=== PATIENT | male | born 1960 | race Caucasian/White ===

== ENCOUNTER 2020-04-01 22:19 | Emergency (ER) | payer OTHER ==
[~2020-04-01] VITALS: Ht 175.3 cm; Wt 80.3 kg
[~2020-04-01 22:19] MED LIST: CLONIDINE HCL0.1 MG PO; CYMBALTA30 MG PO; DIAZEPAM5 MG PO; DOLOPHINE HCL10 MG PO; GABAPENTIN300 MG PO; GUAIATUSSIN AC10 ML PO; KLONOPIN1 MG PO; MELOXICAM15 MG PO; OXYCODONE HCL5 MG PO; PROVENTIL HFA6.7 GM INH; ZITHROMAX500 MG PO
[2020-04-01] MEDS ORDERED: BUPRENORPHIN-N1 EACH SL (22:27)
== END 2020-04-01 23:20 | disposition home or self-care (01) ==
LOC: ED 22:19
DX: F11.23 Opioid dependence with withdrawal (principal); Z88.8 Allergy status to other drugs, medicaments and biological substances; Z79.899 Other long term (current) drug therapy
CPT/HCPCS: 99284

== ENCOUNTER 2023-07-08 05:57 | Emergency (ER) | payer OTHER ==
[~2023-07-08] VITALS: Ht 175.3 cm; Wt 63.4 kg
[~2023-07-08 05:57] MED LIST changes: +BUPRENORPHIN-N1 EACH SL
[2023-07-08] MEDS ORDERED: ALBUTEROL/IPRATROPIUM 3 ML NEB INH ONE (06:30)
[2023-07-08 06:54] LABS: INFLUENZA B NAA NEGATIVE (NEGATIVE); RESPIRATORY SYNCYTIAL VIR NAA NEGATIVE (NEGATIVE)
[2023-07-08] MEDS ORDERED: ACETAMINOPHEN 500 MG TAB PO ONE (07:00)
[2023-07-08] MEDS ORDERED: VENTOLIN HFA18 GM INH (07:01)
[2023-07-08 07:11] VITALS: BP 136/77
== END 2023-07-08 07:12 | disposition home or self-care (01) ==
LOC: ED 05:57
PROVIDERS: Internal Medicine
DX: J06.9 Acute upper respiratory infection, unspecified (principal); B97.89 Other viral agents as the cause of diseases classified elsewhere; Z86.16 Personal history of COVID-19; Z88.7 Allergy status to serum and vaccine; Z91.048 Other nonmedicinal substance allergy status
CPT/HCPCS: 71045; 87502; 94640; A9270; U0002

== ENCOUNTER 2024-02-12 12:52 | Observation (INO) | payer OTHER ==
[~2024-02-12] VITALS: Ht 175.3 cm; Wt 63.6 kg
[~2024-02-12 12:52] MED LIST changes: +ALEVE ARTHRITI100 GM TP; +GABAPENTIN300 MG; +IBLOOD GLUCOSE TEST STRIP 1 EA TEST VI PRN; +LACTATED RINGER'S 1,000 ML IV SCH; +LIDOCAINE HCL 1% 5 ML SDV INJ ONE; +MIDAZOLAM HCL 5 MG/5 ML VIAL IV PRN; +TURMERIC CURCU500 MG PO; +VENTOLIN HFA18 GM INH; +[UNRECOGNIZED DRUG - OTHER]; +fentaNYL citrate 100 MCG/2 ML VIAL IV PRN
[2024-02-12 13:06] VITALS: BP 125/68
[2024-02-12] MEDS ORDERED: [UNRECOGNIZED DRUG - OTHER] PO (13:08)
[2024-02-12] MEDS ORDERED: GUMMI BEAR MUL1 EACH PO (13:09)
[2024-02-12] MEDS ORDERED: MIDAZOLAM HCL 5 MG/5 ML VIAL ONE (13:42)
[2024-02-12] MEDS ORDERED: fentaNYL citrate 100 MCG/2 ML VIAL ONE ×2 (13:42→14:20)
[2024-02-12] MEDS ORDERED: SUGAMMADEX SODIUM 200 MG/2 ML ML ONE (14:20)
[2024-02-12] MEDS ORDERED: DEXAMETHASONE SOD PHOS 4 MG/ML VIAL ONE (14:20)
[2024-02-12] MEDS ORDERED: propofoL 200 MG/20 ML VIAL ONE (14:20)
[2024-02-12] MEDS ORDERED: ondansetron HCL 4 MG/2 ML VIAL ONE (14:20)
[2024-02-12] MEDS ORDERED: ROCURONIUM BROMIDE 50 MG/5 ML SYR ONE (14:20)
[2024-02-12] MEDS ORDERED: KETOROLAC TROMETHAMINE 30 MG/ML VIAL ONE (14:20)
[2024-02-12] MEDS ORDERED: LIDOCAINE HCL 4% 5 ML AMP ONE (14:20)
[2024-02-12] MEDS ORDERED: METOCLOPRAMIDE HCL 10 MG/2 ML SDV ONE (14:20)
[2024-02-12] MEDS ORDERED: FAMOTIDINE 20 MG/ 2 ML VIAL ONE (14:20)
[2024-02-12] MEDS ORDERED: MIDAZOLAM HCL 2 MG/2 ML VIAL ONE (14:20)
[2024-02-12] MEDS ORDERED: LACTATED RINGER'S 1,000 ML IV ONE (14:20)
[2024-02-12] MEDS ORDERED: SUCCINYLCHOLINE IN 0.9% NACL 200 MG/10 ML SYRINGE ONE (14:20)
[2024-02-12] MEDS ORDERED: MEROPENEM 1,000 MG in SODIUM CHLORIDE 0.9% 100 ML IV ONE (14:30)
--- NOTE | 2024-02-12 14:44 | NUR ---
02/12/24 Georgette4 Ana Cody 1424 PT BROUGHT INTO PACU FOR TEMP HOLD, BOWEL PERFORATION ACCURED DURING COLONOSCOPY. CHEST XRAY COMPLETED IN PACU CONFIRMED. PT TAKEN TO SURGERY.
--- NOTE | 2024-02-12 15:21 | NUR ---
02/12/24 Wong1 Ana Cody 1424 PT BROUGHT INTO PACU FROM [facility] FOR TEMP HOLDING. BOWEL PERFORATION ACCURED DURING COLONOSCOPY, CHEST XRAY DONE IN PACU TO CONFIRMED. PT TAKEN TO SURGERY
[2024-02-12] MEDS ORDERED: MORPHINE SULFATE 10 MG/ML VIAL IV PRN (16:15)
[2024-02-12] MEDS ORDERED: ACETAMINOPHEN 1,000 MG/100 ML VIAL IV PRN (16:15)
[2024-02-12] MEDS ORDERED: LACTATED RINGER'S 1,000 ML IV SCH (16:15)
[2024-02-12] MEDS ORDERED: ondansetron HCL 4 MG/2 ML VIAL IV PRN (16:15)
[2024-02-12] MEDS ORDERED: OXYCODONE HCL 5 MG TAB PO PRN (16:15)
[2024-02-12] MEDS ORDERED: KETOROLAC TROMETHAMINE 30 MG/ML VIAL IV PRN (16:15)
[2024-02-12] MEDS ORDERED: NALOXONE HCL 0.4 MG/ML VIAL ONE (16:26)
[2024-02-12 16:56] VITALS: BP 140/76
--- NOTE | 2024-02-12 16:58 | NUR ---
PT TO FLOOR WITH NORA CABAN. PT ANSWERS QUESTIONS BUT WITH HIS EYES CLOSED. REPORT RECEIVED AND VS ASSESS. ELIZABETH BUT HAS BEEN HIS NORM TODAY. QUARTER SIZED DRAINAGE ON MIDLINE DRESSING, UNCHANGED FROM PACU. PT RATES PAIN 4/10 STATES HE WOULD WANT MEDS AT MAYBE A 7. PT ASKED ABOUT THE INCISION HE BRIEFLY DID NOT REMEMBER. CALL LIGHT IN REACH, MORE BLANKETS PLACED.
--- NOTE | 2024-02-12 18:41 | NUR ---
DR JO IN ROOM EXPLAINING SURG. PT DROWSY BUT STATED UNDERSTANDING AND ANSWERS QUESTIONS. PT ASSISTED TO REMOVE EXTRA BEDDING BEHIND HIM. ONLY PAINFUL WITH MOVEMENT OR SNEEZING\COUGHING. ADVISED TO APPLY LIGHT PRESSURE TO ABD IF COUGHING. ACTICOAT REMAINS UNCHANGED. PT ATTEMPTED VOIDING AGAIN. ONLY 50 OUT. PT GIVEN CLEAR ENSURE AND JELLO. ICE WATER AT BEDSIDE.
[2024-02-12 19:14] VITALS: BP 142/82
--- NOTE | 2024-02-12 19:17 | NUR ---
REPORT RECEIVED FROM DAY SHIFT RN. PT LYING IN BED ALERT AND ORIENTED. UP TO BR WITH DAY SHIFT RN. WHITE BOARD UPDATED. CALL LIGHT IN REACH.
--- NOTE | 2024-02-12 19:17 | NUR ---
PT AMBULATED INTO BATHROOM SBA. VOIDED 475 LIGHT YELLOW URINE. BACK IN BED AND AWARE HE NEEDS TO TAKE A LAP TONIGHT LATER. VS STABLE.
[2024-02-12 20:11] VITALS: BP 124/65
--- NOTE | 2024-02-12 20:18 | NUR ---
PT DROWSY. AWAKENS EASILY TO VOICE. VS AND I&O OBTAINED. EVENING ASSESSMENT COMPLETE. PT DENIES PAIN OR NAUSEA. BOWEL TONES ACTIVE. ABD SOFT. PT DENIES FLATUS. MIDLINE DRESSING INTACT WITH SMALL AMOUNT SEROSANG DRAIANGE. CPOX AND SCD'S IN PLACE. PT DENIES QUESTIONS OR CONCERNS. CALL LIGHT IN REACH. BED ALARM FOR SAFETY.
[2024-02-12] MEDS ORDERED: FAMOTIDINE 20 MG/ 2 ML VIAL IV SCH (21:00)
[2024-02-12 21:23] VITALS: BP 128/66
--- NOTE | 2024-02-12 22:11 | NUR ---
PT RESTING WITH EYES CLOSED. AWAKENS EASILY. SCHEDULED MEDS ADMIN PER EMAR. PT DENIES PAIN OR NAUSEA. NO NEEDS. CALL LIGHT IN REACH.
--- NOTE | 2024-02-12 23:44 | NUR ---
PT RESTING IN BED WITHE EYES CLOSED. RESPIRATIONS EVEN. SpO2 MID 90'S ON RA. HR 60'S.
--- NOTE | 2024-02-12 23:46 | NUR ---
PHYSICAL THERAPY RESIDENT HELPED PT SERENA TO THE BATHROOM TO USE THE URINAL. PHYSICAL THERAPY RESIDENT GOT PT BACK IN BE WITH SCD'S ON AND CALL LIGHT WITHIN REACH.
[2024-02-13] VITALS (8 sets, daily range): BP systolic 114–133; BP diastolic 56–68
--- NOTE | 2024-02-13 01:54 | NUR ---
PT AWAKE IN BED. VS AND I&O OBTAINED. PT UP TO BR WITH MINIMAL SBA TO VOID. BACK TO BED, AGUS WELL. SCD'S AND CPOX IN PLACE. MIDLINE ABD DRESSING INTACT WITH SMALL AMOUNT SEROSANG DRAINAGE. BOWEL TONES ACTIVE. ABD SOFT. PT REPORTS FLATUS. DENIES NAUSEA. REPORTS ABD PAIN 2/10 AT REST, 5/10 WITH ACTIVITY. PRN FOR PAIN ADMIN PER EMAR. CLEAR LIQUIDS PROVIDED. NO FURTHER NEEDS.
--- NOTE | 2024-02-13 03:32 | NUR ---
PT AWAKE IN BED. COFFEE PROVIDED PER REQUEST. NO FURTHER NEEDS. CALL LIGHT IN REACH.
--- NOTE | 2024-02-13 04:29 | NUR ---
STAFF DEVELOPER HELPT PT GO TO THE BATHROOM AND BACK TO BED. STAFF DEVELOPER LEFT PT WITH SCD'S ON AND CALL LIGHT WITHIN REACH.
[2024-02-13 05:59] LABS: BASOPHILS 0.1 % (0-2); HEMATOCRIT 35.9 % (35.0-50.0); HEMOGLOBIN 12.1 g/dL (12.0-18.0); LYMPHOCYTES 4.2 % (24-44); MCH 29.8 (27-36); MCHC 33.7 g/dl (30-36); MCV 88.6 fl (81-99); MONOCYTES 5.2 % (0-12); NEUTROPHILS 90.5 % (39-80); PLATELET COUNT 157 K/uL (140-440); RBC 4.06 M/ul (4.3-5.7); RDW 14.2 (10.5-15.0)
--- NOTE | 2024-02-13 05:59 | NUR ---
PT AWAKE IN BED. VS AND I&O OBTAINED. NEW BAG IVF INFUSING PER ORDER. PT DENIES PAIN OR NAUSEA. CLEAR LIQUIDS PROVIDED. NO FURTHER NEEDS.
[2024-02-13] MEDS ORDERED: MEROPENEM 1,000 MG in SODIUM CHLORIDE 0.9% 100 ML IV SCH (06:30)
--- NOTE | 2024-02-13 06:40 | NUR ---
DR JO CALLED, ORDERS RECEIVED. RELAYED MESSAGE THAT PT CONCERNED ABOUT HIS DOG; PT TO CALL SISTER AND INQUIRE WHEREABOUTS OF DOG.
--- NOTE | 2024-02-13 07:41 | NUR ---
RECIEVED REPORT FROM NORA BRYAN. PT AWAKE AND RESTING IN BED. AFFECT IS MORE FLAT THIS MORNING BUT STATES HE HAS 0\10 PAIN. WANTS TO GO HOME. UP TO RESTROOM SBA. TOLERATED WELL AND WILL WALK IN TOUSSAINT SOON AB IS DONE INFUSING.
[2024-02-13] MEDS ORDERED: MEROPENEM 500 MG in SODIUM CHLORIDE 0.9% 100 ML IV SCH (08:00)
--- NOTE | 2024-02-13 08:08 | NUR ---
UR CLINICAL REVIEW: [facility] [place]- MEETS SHORT STAY GUIDELINES FOR GEN SURG ODS [facility]O OBS 02/12/24 @ 1605 WILL UPDATE REG NO AUTH REQUIRED FOR OBS STAY DISCHARGE TO HOME WHEN STABLE 02/14/24
[2024-02-13] MEDS ORDERED: L-THEANINE100 MG PO (08:20)
--- NOTE | 2024-02-13 08:21 | NUR ---
MED REC COMPLETE
--- NOTE | 2024-02-13 09:02 | NUR ---
ALERT AND ORIENTED IN BED. LIVES IN APARTMENT, NO STAIRS. STATES HE HAS NO DME. HE IS ABLE TO DRIVE AT [place]. STATES HE HAS NO FINANCIAL ISSUES, ABLE TO PAY FOR UTILITIES AND FOOD, DOES NOT TAKE MEDS AT [facility]. STATES HE HAS NO CURRENT NEEDS, DEMOGRAPHICS ARE VERIFIED. STATES HE HAS CHANGE PCP TO TEOFILO URIOSTEGUI AT [facility]. ADMITTING NOTIFIED TO UPDATE. DENIES OTHER DC NEEDS AT THIS TIME.
--- NOTE | 2024-02-13 09:06 | NUR ---
ADMINISTERED KRYSTYNA ATER PT AMBULATED 6 LAPS IN HALLS. STATES PAIN IS 2\10 WHEN NOT MOVING BUT A 7\10 WHEN COUGHING, BENDING. PT SITTING UP IN CHAIR ENJOYING THE SUN. CALLED SISTER AND IS NOW CONTENT WITH HIS DOGS SITUATION. PASSING GAS. HAS QUESTIONS WE WILL ASK ABOUT HIS COLONOSCOPY STATUS.
--- NOTE | 2024-02-13 09:08 | NUR ---
Patient report feeling pain when coughing. Patient and I walked six laps around the nurse station then moved set in his recliner. No further request from patient at this time
--- NOTE | 2024-02-13 10:00 | NUR ---
VISITED DURING SPIRITUAL CARE ROUNDS. PT APPEARED TO BE SLEEPING. DID NOT DISTURB. PROVIDED PRAYER.
--- NOTE | 2024-02-13 10:17 | NUR ---
SWITCHED PT FROM COMPLETED TYLENOL TO AB. INFUSING WNL.
--- NOTE | 2024-02-13 11:40 | NUR ---
PT AMB IN TOUSSAINT WITH THIS RN. DID WELL AND QUICKLY WALKED 6 LAPS. PT STATES HE IS PASSING LOTS OF GAS.
--- NOTE | 2024-02-13 14:59 | NUR ---
PT RESTING IN BED AFTER AMB AGAIN. AB INFUSING AGAIN. PT DENIES PAIN, BT ACTIVE.
--- NOTE | 2024-02-13 16:32 | NUR ---
IN PT CALLING, HE HAD A VERY SMALL BOWEL MOVEMENT WHILE USING THE URINAL. BM WAS VERY SOFT, NO BLOOD NOTED, PT STATES NO PAIN WITH MOVEMENT. FLOOR CLEANED, BM CHARTED. PT HAS NO OTHER NEEDS AT THIS TIME, CALL LIGHT AND PERSONAL BELONGINGS WITHIN REACH.
--- NOTE | 2024-02-13 16:46 | OR ---
[facility] [address], [place] [address] Signed DATE OF OPERATION: 02/12/2024 SURGEON: Samina Jo MD PREOPERATIVE DIAGNOSES: Rectal bleeding, family history of colon cancer. POSTOPERATIVE DIAGNOSIS: Diverticular changes sigmoid, probable perforation with scope (colonoscopy incomplete). PROCEDURE: Incomplete colonoscopy and application of tattoo dye in sigmoid. ANESTHESIA: Intravenous sedation; fentanyl 150 mcg, Versed 8 mg. INDICATION: This 63-year-old white man is a patient of Rickey Peace PA-C. The patient is known to have a family history of colon cancer in his father. He last underwent colonoscopy by Dr. Pardeep La in 2013. He has current symptoms of bleeding which has been going on for the past year. He does have sleep apnea. His only medicines include gabapentin, turmeric and a multivitamin. He does not smoke or drink alcohol. He is and lives in [place]. He is admitted at this time to undergo colonoscopy on the basis of his rectal bleeding. He understood the risk of bleeding, infection, and perforation and wished to proceed. FINDINGS: The prep was quite good overall, however, he did have diverticular change of the sigmoid. He was surprisingly tolerant of intravenous sedation and had a fair amount of movement and straining and so forth. Although the scope was easily passed to approximately 30 cm with his additional activity, straining and so forth, additional sedation was given, but at some point, it became clear that he likely suffered perforation of the colon with the scope. Specifically, it appeared that there were peritoneal structures in the field of view. The scope was carefully withdrawn, avoiding excessive insufflation of air and an area of colon was injected with methylene blue dye in the submucosal area. The scope was then withdrawn and exam was normal. ASSESSMENT: Likely perforation. Electronically Signed By: SAMINA JO MD 02/13/24 1646 PATIENT NAME: ARTI SHORT OPERATIVE REPORT DATE OF : 56 REPORT #: [id number] PHYSICIAN: SAMINA JO MD PCP: TEOFILO URIOSTEGUI PAC REPORT IS CONFIDENTIAL AND NOT TO BE RELEASED WITHOUT AUTHORIZATION [address] [address] Signed PLAN: He will get an abdominal KUB or upright chest x-ray in recovery room to affirm the high probability of perforation. Plans are being made for operative management of the problem. I have attempted to call his family member, Romina Nevarez at [phone], who is his designated ems driver today, but thus far unable to talk to her. I did talk to the patient about all this. He is quite alert and oriented at this time and accepts a plan for operative management. MD MIKE Zapien/CELESTINE /[id number] cc: Rickey Peace PA-C Copies: ~ Electronically Signed By: SAMINA JO MD 02/13/24 1646 PATIENT NAME: MERVIN SHORTRICK VIELKA OPERATIVE REPORT DATE OF : 56 REPORT #: [id number] PHYSICIAN: SAMINA JO MD PCP: TEOFILO URIOSTEGUI PAC REPORT IS CONFIDENTIAL AND NOT TO BE RELEASED WITHOUT AUTHORIZATION
[2024-02-13] MEDS ORDERED: ACETAMINOPHEN 500 MG TAB PO PRN (17:45)
--- NOTE | 2024-02-13 18:05 | NUR ---
Patient looked forward to having actual food. Patient had no problem with digesting the meal. Call light has been placed within reach.
--- NOTE | 2024-02-13 19:27 | NUR ---
Received report from NORA Lopez. Pt resting in bed. Denies needs at this time. CAll light within reach.
--- NOTE | 2024-02-13 20:15 | NUR ---
Pt resting comfortably. Reports minimal abd pain, 2/10, refuses narcotic pain med, prefers plain Tylenol-administered per EMAR. VSS except HR rivka, pt asymptomatic. LSC dim to bases, deep breathe and cough w/ abd splinting encouraged. CPOX in place. BTA, abd flat, tender to LLQ. Reports passing flatus and int nausea but none currently. Report tiny BM today. Midline abd drsg w/ 2 spots dried drng. Tolerating low fiber diet. SL in place. Pt reports amb in halls and room independently. Call light within reach.
--- NOTE | 2024-02-13 22:38 | NUR ---
Pt awake, reports diff sleeping at baseline. Ice water refreshed per request. Denies any other needs. Call light within reach.
--- NOTE | 2024-02-14 00:28 | NUR ---
Pt asleep but awakens easily upon my entering room. Denies needs. Call light within reach.
--- NOTE | 2024-02-14 02:01 | NUR ---
Pt is still awake, reports having slept "a little". Denies needs. Call light within reach.
--- NOTE | 2024-02-14 03:55 | NUR ---
Pt hardly slept overnight. Ambulates in halls frequently. Minimal abd pain, pt avoids narcs, received PRN Tylenol. Midline abd inc w/ dried dnrg. Tolerating low fiber diet. Passing flatus. Small BM 02/12. RH SL in place. Likely D/C home today 02/13.
--- NOTE | 2024-02-14 04:40 | NUR ---
Pt awake, denies needs. Fresh ice water provided. Call light within reach.
[2024-02-14 05:58] LABS: BASOPHILS 0.5 % (0-2); EOSINOPHILS 1.2 % (0-6); LYMPHOCYTES 17.8 % (24-44); MCHC 33.3 g/dl (30-36); MONOCYTES 6.9 % (0-12); NEUTROPHILS 73.6 % (39-80); PLATELET COUNT 137 K/uL (140-440); RBC 4.01 M/ul (4.3-5.7); RDW 14.2 (10.5-15.0)
[2024-02-14 06:03] VITALS: BP 133/65
[2024-02-14 06:10] VITALS: BP 133/65
--- NOTE | 2024-02-14 06:18 | NUR ---
Pt awake, has barely slept. Reports lower abd pain, medicated w/ PRN Tylenol per pt request. BTA, abd mildly tender to LLQ, soft. Denies any further needs. Call light within reach.
--- NOTE | 2024-02-14 07:40 | NUR ---
REPORT RECEIVED FROM NIGHT RN - PT RESTING IN BED SITTING UP LOOKING AT THE CLOCK ON THE WALL. PT FLAT AFFECT AND DOES NOT MAKE EYE CONTACT. REQUESTS BLACK COFFEE - PROVIDED. CALL LIGHT IN REACH.
--- NOTE | 2024-02-14 08:00 | NUR ---
UR CONCURRENT CLINICAL REVIEW: [facility] [place]- MEETS DC CRITERIA FOR SHORT STAY GUIDELINES FOR GEN SURG ODS [facility]O OBS 02/12/24 @ 1605 WILL UPDATE REG NO AUTH REQUIRED FOR OBS STAY DISCHARGE TO HOME WHEN STABLE 02/15/24
--- NOTE | 2024-02-14 09:40 | NUR ---
ASSESSMENT COMPLETE - BOWEL TONES ACTIVE, PT TOLERATED BREAKFAST WITHOUT DIFFICULTY. MIDLINE DRESSING INTACT WITH SMALL SHADOW OF BLOOD ON DISTAL END. PT REMAINS FLAT AFFECT, WITHDRAWN. PT ENCOURAGED TO COUGH AND CLEAR LUNGS. DENIES QUESTIONS OR CONCERNS AT THIS TIME.
--- NOTE | 2024-02-14 10:15 | NUR ---
PT UP IN HALLWAY AMBULATING INDEPENDENTLY
--- NOTE | 2024-02-14 10:38 | NUR ---
VISITED DURING SPIRITUAL CARE ROUNDS. PT DENIED IMMEDIATE NEEDS, STATES FEELING BETTER. VOLUNTEER SERVICES SUPERVISOR PROVIDED SUPPORTIVE PRESENCE, HOSPITALITY, PRAYER. PT EXPRESSED GRATITUDE.
[2024-02-14 10:48] VITALS: BP 146/67
[2024-02-14] MEDS ORDERED: ACETAMINOPHEN500 MG PO (11:57)
--- NOTE | 2024-02-14 12:05 | NUR ---
PT FOUND IN BACK HALLWAY TRYING TO LEAVE WITHOUT BEING DISCHARGED. PT WITH IV IN RIGHT HAND. SPOKE WITH PT AND ASKED HIM TO RETURN TO ROOM SO THAT WE COULD GET HE IV OUT AND GET HIS DISCHARGE PAPERWORK. PT UNHAPPY WITH THIS, BUT DOES RETURN TO HIS ROOM. IV REMOVED AND HIS PRIMARY NURSE WORKING ON DISCHARGE.
[2024-02-14 12:11] VITALS: BP 153/74
--- NOTE | 2024-02-14 12:11 | OR ---
[facility] [address] [place], [place] [address] Signed DATE OF OPERATION: 02/12/2024 SURGEON: Samina Jo MD PREOPERATIVE DIAGNOSIS: Perforation of sigmoid colon secondary to colonoscopy. POSTOPERATIVE DIAGNOSIS: Perforation of sigmoid colon secondary to colonoscopy, defect size 1 cm. PROCEDURE: Mini-laparotomy with repair of perforated colon. ANESTHESIA: General endotracheal; Samina Garcia CRNA. INDICATION: This 63-year-old white man is a patient of DEANNA Beckwith and referred for colonoscopy on the basis of episodic rectal bleeding and family history of colon cancer. The patient underwent colonoscopy about an hour or so ago by me where he was found to have a good prep, but some intolerance of sedation, having received 150 mcg of fentanyl and 7 mg of Versed. He did have angulation deformity in the sigmoid area. He was noted to have findings suggestive of perforation and the scope was withdrawn and the site proximal or distal to the presumed perforation was marked with Endomark tattoo dye. A postprocedure chest x-ray in recovery room did show free air. I have discussed with the patient as well as his sister, Romina Nevarez, a recommendation of prompt operation with repair of the defect and other indicated procedures. He understands as does his sister the risk of bleeding, infection, need for resectional therapy and other unforeseen complications and wished to proceed. FINDINGS: The prep was easily identified on the anterior aspect of the colon at the junction between the sigmoid and the descending colon as expected. The previous Endomark tattoo dye was easily identified and also easily identifying the relatively small 2 cm perforation. The perforation was repaired with a two-layer technique of interrupted 3-0 silk sutures. Palpation throughout the remaining colon did show distention with air, but no palpable mass. He had no ascites or carcinomatosis. The abdomen was irrigated fully as well. The operation was promptly undertaken and he is expected to recover easily. Electronically Signed By: SAMINA JO MD 02/14/24 1211 PATIENT NAME: ARTI SHORT OPERATIVE REPORT DATE OF : 56 REPORT #: [id number] PHYSICIAN: SAMINA JO MD PCP: TEOFILO URIOSTEGUI PAC REPORT IS CONFIDENTIAL AND NOT TO BE RELEASED WITHOUT AUTHORIZATION [facility] [address] [place], [place] [address] Signed DESCRIPTION OF PROCEDURE: The patient was brought to the operating room, given a general endotracheal anesthetic. Preoperative antibiotic meropenem had been given. Sequential compression device stockings were used. After satisfactory general endotracheal anesthesia, a Vazquez catheter was placed. The abdomen was clipped and prepared with a chlorhexidine solution and draped sterilely. A limited incision was made in the infraumbilical area and dissection carried through the relatively shallow subcutaneous tissue allowing for entry into the abdomen. There was some fluid, but no sign of gross contamination otherwise. Easily identified was the area of the tattoo marking in the proximal sigmoid and proximal to that the defect on the anti mesenteric side of the colon quite easily identified. Photographs were taken. The defect was not associated with tumor or other obvious pathology though some diverticuli were noted regionally. The defect was repaired in a two-layer technique with interrupted 3-0 silk suture in the mucosal layer and a interrupted 3-0 silk in the serosal layer as well. A small amount of omentum was additionally secured to the site with interrupted 3-0 silk. Gentle palpation of the colon was undertaken throughout showing no sign of bulky neoplasm though the colon was somewhat distended with air as might be expected. Irrigation was undertaken with 1 L warm saline solution and plans made for closure. The midline fascia was reapproximated with running #1 PDS suture. Subcutaneous tissue irrigated and skin closed with running subcuticular 3-0 Vicryl. Steri-Strips were applied as was Acticoat dressing. He tolerated the procedure well, anticipating extubation in the operating room soon. MD MIKE Zapien/MODL /[id number] cc: DEANNA Beckwith Electronically Signed By: SAMINA JO MD 02/14/24 1211 PATIENT NAME: ARTI SHORT OPERATIVE REPORT DATE OF : 56 REPORT #: [id number] PHYSICIAN: SAMINA JO MD PCP: TEOFILO URIOSTEGUI PAC REPORT IS CONFIDENTIAL AND NOT TO BE RELEASED WITHOUT AUTHORIZATION [facility] [address] [place] [address] Signed Copies: ~ Electronically Signed By: SAMINA JO MD 02/14/24 1211 PATIENT NAME: ARTI SHORT OPERATIVE REPORT DATE OF : 56 REPORT #: [id number] PHYSICIAN: SAMINA JO MD PCP: TOEFILO URIOSTEGUI PAC REPORT IS CONFIDENTIAL AND NOT TO BE RELEASED WITHOUT AUTHORIZATION
--- NOTE | 2024-02-14 12:26 | NUR ---
THIS RN NOTIFIED BY PROBATION AGENT THAT PT WAS FOUND ATTEMPTING TO LEAVE HOSPITAL THROUGH BACK DOOR WITH IV IN PLACE. PT ESCORTED BACK TO ROOM AND DC PAPERS PROVIDED. PT WHEELED TO FRONT EXIT AFTER IV DC'D AND VS OBTAINED.
--- NOTE | 2024-02-15 10:33 | DS ---
[facility] [address] [place], [place] [address] Signed ADMISSION DATE: 02/12/2024 DISCHARGE DATE: 02/14/2024 REASON FOR ADMISSION: Perforated colon with colonoscopy. HISTORY OF PRESENT ILLNESS: This 63-year-old white man is a patient of DEANNA Beckwith and was referred for colonoscopy on the basis of episodic rectal bleeding and family history of colon cancer. He was admitted to undergo colonoscopy on that basis. He underwent colonoscopy on 02/12/2024 by me where he was found to have restlessness during the course of sedation and angulation of the sigmoid colon with some difficulty in advancing the colonoscope. Additional sedation was helpful but perpetual straining against the scope was challenging and at some point it was clear that colonic perforation had occured in the sigmoid area. Further passage of the colonoscope was discontinued, an area distal ( rectal side) of the presumed perforation was tattooed to allow intra operative identification and repair. He had no abdominal distention or actual abdominal pain. There was no tenderness. An upright chest x-ray did show free air consistent with perforation and on that basis, I recommended and he agreed to in concert with his sister that he undergo repair of the perforation promptly. He is admitted on that basis. PERTINENT PHYSICAL EXAMINATION: GENERAL: Showed a very thin white man, who was hemodynamically stable. VITAL SIGNS: Temperature was 98.3. His pulse was 57 and blood pressure 125/68. chest showed no tachypnea and abdomen was non distended and non tender. HOSPITAL COURSE: He underwent prompt evaluation as noted and was given broad-spectrum antibiotic meropenem. He was taken to the operating room within an hour of the perforation and the perforated area easily identified in the anterior aspect of the sigmoid colon proximal to the Endo bran tattoo dye that had been placed. Repair was undertaken with two layers of interrupted 3-0 silk suture. Irrigation of the pelvis and abdomen was undertaken, there was no sign of gross contamination in any way. There was air distending the more proximal colon. Palpation of the colon showed no sign of palpable mass or other abnormality. His postoperative course was rather unremarkable. He was begun on a clear liquid diet and advanced to a low fiber diet which he tolerated well. He has had normal bowel movements since the operation. Broad-spectrum antibiotics were maintained postoperatively despite his having no significant peritoneal contamination. Electronically Signed By: SAMINA JO MD 02/15/24 1033 PATIENT NAME: ARTI SHORT DISCHARGE SUMMARY DATE OF : 56 REPORT #: [id number] PHYSICIAN: SAMINA JO MD PCP: TEOFILO URIOSTEGUI PAC REPORT IS CONFIDENTIAL AND NOT TO BE RELEASED WITHOUT AUTHORIZATION [address] [address] Signed Upon discharge, he is to lift no more than 20 pounds for the next four weeks. I will see him back in the office in four weeks or so. He will have my cell number in case there are any complications or concerns that he has. We will anticipate a repeat colonoscopy with propofol sedation technique no sooner than four weeks and more likely eight weeks from now. DISCHARGE MEDICATIONS: 1. Tylenol 1000 mg p.o. q.6 hours as needed for pain #30, refill 1. 2. Resumption of usual medication including turmeric root extract one cap p.o. q. 2 days. 3. one p.o. q. 2 days. 4. Multivitamin gummy bear one p.o. daily. 5. 100 mg p.o. q. 2 days. DISCHARGE DIAGNOSES: 1. Perforated colon following difficult colonoscopy February 12, 2024. 2. Status post immediate resuscitation and repair of colonic perforation by mini-laparotomy February 12, 2024. 3. Family history of colon cancer and current episodic of rectal bleeding. MD MIKE Zapien/PATRICIAL /[id number] Copies: ~ Electronically Signed By: SAMINA JO MD 02/15/24 1033 PATIENT NAME: ARTI SHORT DISCHARGE SUMMARY DATE OF : 56 REPORT #: [id number] PHYSICIAN: SAMINA JO MD PCP: TEOFILO URIOSTEGUI PAC REPORT IS CONFIDENTIAL AND NOT TO BE RELEASED WITHOUT AUTHORIZATION
== END 2024-02-14 12:15 | disposition home or self-care (01) ==
LOC: DS 12:52 → OPS 12:52 → MS 12:52 → DS 12:53 → OPS 14:00 → MS 16:48 → OPS 16:49 → MS 16:50
PROVIDERS: ADMIT Surgery; ATTEND Surgery
PROC: 0DJD8ZZ Inspection of Lower Intestinal Tract, Via Natural or Artificial Opening Endoscopic (ICD-10-PCS; 2024-02-12)
PROC: 0DJD0ZZ Inspection of Lower Intestinal Tract, Open Approach (ICD-10-PCS; principal; 2024-02-12 14:00)
DX: K62.5 Hemorrhage of anus and rectum (principal); K63.1 Perforation of intestine (nontraumatic); G47.30 Sleep apnea, unspecified; K57.30 Diverticulosis of large intestine without perforation or abscess without bleeding; Z80.0 Family history of malignant neoplasm of digestive organs
CPT/HCPCS: 00811; 36415; 71045; 74018; 85025; 96365; 96366; 96375; 96376; 99153; A9270; G0378; G0500; J0131; J0330; J1100; J1885; J2185; J2250; J2310; J2405; J2704; J2765; J3010; J3490; J7121